=== PATIENT | male | born 1955 | race Caucasian/White ===

== ENCOUNTER → 2017-06-22 | Outpatient (CLI) | payer BC ==
[~2017-06-22] MED LIST: ADVAIR 500/501 DISK IH; BUSPIRONE HCL10 MG PO; GLUCOSAMINE-CH1 EA27 PO; LORAZEPAM0.5 MG PO
== END | disposition home or self-care (01) ==
LOC: CDC 08:51
DX: Z01.810 Encounter for preprocedural cardiovascular examination (principal); R22.2 Localized swelling, mass and lump, trunk
CPT/HCPCS: 93000

== ENCOUNTER 2017-06-30 09:03 | Day surgery (SDC) | payer BC ==
[~2017-06-30] VITALS: Ht 177.8 cm; Wt 93.0 kg
[~2017-06-30 09:03] MED LIST changes: +ADVAIR 250/501 DISK IH; +AMLODIPINE BESYL5 MG PO; +ASPIR 8181 M1 PO
[2017-06-30 09:40] VITALS: BP 123/69
[2017-06-30 12:55] VITALS: BP 139/78
[2017-06-30 13:36] VITALS: BP 135/71
== END 2017-06-30 13:40 | disposition home or self-care (01) ==
LOC: SDC 09:03
PROC: 0JB70ZZ Excision of Back Subcutaneous Tissue and Fascia, Open Approach (ICD-10-PCS; principal; 2017-06-30)
DX: D17.1 Benign lipomatous neoplasm of skin and subcutaneous tissue of trunk (principal); I10 Essential (primary) hypertension; J45.909 Unspecified asthma, uncomplicated; Z87.891 Personal history of nicotine dependence; Z79.82 Long term (current) use of aspirin; Z88.2 Allergy status to sulfonamides
CPT/HCPCS: 88304; J0690; J1885; J2250; J2405; J3010